=== PATIENT | male | born 1955 | race Caucasian/White ===

== ENCOUNTER 2021-09-19 07:43 | Inpatient (IN) ==
[2021-09-19] MEDS ORDERED: Ondansetron 4 mg VIAL 2 MG/ML 2 ml VIAL IV ONE (08:18)
[2021-09-19] MEDS ORDERED: Lactated Ringers 1000 ml BAG 1,000 ML IV ONE ×3 (08:18→13:13)
[2021-09-19] MEDS ORDERED: Morphine 4 MG/ML VIAL (1 ml) IV ONE (08:18)
[2021-09-19 09:03] LABS: ABS Lymphocytes 0.9 10^3/ul (1.0-4.8); ABS Monocytes 0.6 10^3/ul (0-0.8); ABS Neutrophils 10.8 10^3/ul (1.5-7.7); Eosinophil % 0.1 %; Hematocrit 51 % (42-52); Hemoglobin 17.1 g/dL (14.0-18.0); Lymphocyte % 7.4 %; Mean Corpuscular HGB Conc 34 g/dL (31-36); Mean Corpuscular Hemoglobin 29 pg (27-31); Mean Corpuscular Volume 87 fL (80-94); Mean Platelet Volume 8.7 fL (7.4-10.4); Platelet Count 165 10^3/uL (150-450); Red Blood Count 5.84 10^6 /uL (4.18-5.48); Red Cell Distribution Width 15 % (10-15); White Blood Count 12.4 10^3/uL (3.5-10.8)
[2021-09-19 09:08] LABS: Urine Appearance Clear; Urine Bilirubin Negative (Negative); Urine Blood 1+ (Negative); Urine Color Straw; Urine Glucose 3+(>=500 mg/dL) (Negative); Urine Ketones 1+ (Negative); Urine Nitrite Negative (Negative); Urine Protein 1+(30 mg/dL) (Negative); Urine Specific Gravity 1.033 (1.002-1.030); Urine Urobilinogen Negative (Negative)
[2021-09-19 09:21] LABS: Urine Bacteria Absent (Absent); Urine Red Blood Cell Trace(0-2/hpf) (Absent); Urine Squamous Epithelial Cell Present (Absent); Urine White Blood Cell Trace(0-5/hpf) (Absent); Urine Yeast Present (Absent)
[2021-09-19 09:37] LABS: Albumin 4.6 g/dL (3.2-5.2); Albumin/Globulin Ratio 1.5 (1-3); C Reactive Protein 6.13 mg/L (<8.01); Calcium 9.9 mg/dL (8.6-10.3); Globulin 3.1 g/dL (2-4); Potassium 4.8 mmol/L (3.5-5.0); Total Bilirubin 0.6 mg/dL (0.2-1.0); Total Protein 7.7 g/dL (6.4-8.9); eGFR CKD-EPI 99.7 (>60)
[2021-09-19] MEDS ORDERED: Iodixanol (CONTRAST) 320 MG/ML 100 ML SDV IV ONE (09:48)
[2021-09-19] MEDS ORDERED: cefTAZidime (*) 2 GM in NS 0.9% 100 ml BAG 100 ML IVPB ONE (11:35)
[2021-09-19] MEDS ORDERED: metroNIDAZOLE IV 500 MG/100ML 500 MG/100 ML BAG IVPB ONE (11:36)
[2021-09-19] MEDS ORDERED: NS 0.9% 100 ml BAG 100 ML ONE (11:58)
[2021-09-19] MEDS ORDERED: cefTRIAXone 2 GM ADDV.VIAL 2 GM in NS 0.9% 100 ml BAG 100 ML IVPB ONE (12:05)
[2021-09-19] MEDS ORDERED: Ondansetron 4 mg VIAL 2 MG/ML 2 ml VIAL ONE (12:46)
[2021-09-19] MEDS ORDERED: fentaNYL 100 mcg/2 ml 50 MCG/ML VIAL ONE ×2 (12:46→15:32)
[2021-09-19] MEDS ORDERED: Lidocaine 2% PF 5 ML VIAL ONE (12:46)
[2021-09-19] MEDS ORDERED: Midazolam 2 mg/2 ml VIAL 1 mg/ml 2 ml VIAL (2 mg) ONE (12:46)
[2021-09-19] MEDS ORDERED: Dexamethasone IV 4 MG/ML VIAL 1 ml VIAL ONE (12:46)
[2021-09-19] MEDS ORDERED: Propofol 10 MG/ML 20 ML BTL ONE (12:46)
[2021-09-19] MEDS ORDERED: Rocuronium 50 mg VIAL 10 mg/ml 5 ml VIAL (50 mg) ONE ×2 (12:46→15:09)
[2021-09-19] MEDS ORDERED: Bupivacaine 0.25% EPI 200,000 30 ML SDV ONE (13:02)
[2021-09-19] MEDS ORDERED: Metoprolol Tartrate 5 mg VIAL 5 ml VIAL (1 mg/ml) ONE ×2 (13:28)
[2021-09-19 14:04] LABS: High Sensitivity Troponin 1 Hr 5 pg/mL (<20)
[2021-09-19] MEDS ORDERED: Clindamycin 900 MG/D5W BAG 900 MG/50 ML BAG IVPB ONE (14:10)
[2021-09-19] MEDS ORDERED: Phenylephrine 40 mcg/mL 10mL (400mcg) SYRINGE ONE (14:37)
[2021-09-19] MEDS ORDERED: Phenylephrine IV 10 MG/ML 1 ml VIAL ONE (14:43)
[2021-09-19] MEDS ORDERED: Gentamicin ADULT 365 MG in NS 0.9% 100 ml BAG 100 ML IVPB ONE (15:00)
[2021-09-19] MEDS ORDERED: Acetaminophen IV 1 GM/100ML 100 ML IV ONE (15:12)
[2021-09-19] MEDS ORDERED: Sugammadex 500 MG/5 ML 5 ml VIAL IV PUSH ONE (15:20)
[2021-09-19] MEDS ORDERED: Ondansetron 4 mg VIAL 2 MG/ML 2 ml VIAL IV PRN (15:59)
[2021-09-19] MEDS ORDERED: oxyCODONE/Acetamin 5/325 mg TAB PO PRN ×2 (15:59→16:07)
[2021-09-19] MEDS ORDERED: Lactated Ringers 1000 ml BAG 1,000 ML IV SCH (16:00)
[2021-09-19] MEDS ORDERED: HYDROmorphone 1 MG/1 ML SYRINGE IV PRN (16:05)
[2021-09-19] MEDS ORDERED: Naloxone 0.4 mg VIAL 0.4 mg/ml 1 ml VIAL IV PRN (16:05)
[2021-09-19] MEDS ORDERED: fentaNYL 100 mcg/2 ml 50 MCG/ML VIAL IV PRN (16:05)
[2021-09-19] MEDS: Ciprofloxacin 400mg IVPREMIX 400 MG/200 ML BAG IVPB SCH (19:17)
[2021-09-19] MEDS: metroNIDAZOLE IV 500 MG/100ML 500 MG/100 ML BAG IVPB SCH (19:17)
[2021-09-19] MEDS ORDERED: CMC:SitaGLIPtin 25mg TAB (NF) 25 MG TAB PO SCH (21:00)
[2021-09-19] MEDS ORDERED: Sitaglip/Metform 50/1000(NR) TAB PO SCH (21:00)
[2021-09-19] MEDS: Heparin 5000 UNITS/ML 1 mL VIAL SUBCUT SCH (21:42)
[2021-09-19] MEDS: CMCS: SitaGLIPtin 100 mg TAB (NF) PO SCH (22:17)
[2021-09-20] MEDS: metroNIDAZOLE IV 500 MG/100ML 500 MG/100 ML BAG IVPB SCH ×2 (04:38→10:07)
[2021-09-20] MEDS: Ciprofloxacin 400mg IVPREMIX 400 MG/200 ML BAG IVPB SCH (05:47)
[2021-09-20] MEDS: Heparin 5000 UNITS/ML 1 mL VIAL SUBCUT SCH (05:51)
[2021-09-20 06:08] LABS: ABS Lymphocytes 0.9 10^3/ul (1.0-4.8); ABS Monocytes 0.7 10^3/ul (0-0.8); Hematocrit 41 % (42-52); Mean Corpuscular HGB Conc 34 g/dL (31-36); Mean Corpuscular Hemoglobin 30 pg (27-31); Mean Corpuscular Volume 87 fL (80-94); Mean Platelet Volume 8.4 fL (7.4-10.4); Platelet Count 129 10^3/uL (150-450); Red Blood Count 4.68 10^6 /uL (4.18-5.48); Red Cell Distribution Width 15 % (10-15); White Blood Count 9.6 10^3/uL (3.5-10.8)
[2021-09-20 06:54] LABS: Calcium 8.7 mg/dL (8.6-10.3); Potassium 4.5 mmol/L (3.5-5.0); eGFR CKD-EPI 99.4 (>60)
[2021-09-20] MEDS ORDERED: DAPAGLIFLOZIN 10 MG TAB (NF) PO SCH (09:00)
[2021-09-20] MEDS: CMCS: SitaGLIPtin 100 mg TAB (NF) PO SCH (10:06)
[2021-09-20] MEDS ORDERED: Ciprofloxacin 400mg IVPREMIX 400 MG/200 ML BAG IVPB SCH (11:00)
[2021-09-20 11:07] VITALS: BP 136/78
== END 2021-09-20 14:00 | disposition home or self-care (01) | DRG 339 ==
LOC: ED 07:43 → OR 13:50 → ED 14:06 → SSU 17:54
PROVIDERS: ADMIT Surgery; ATTEND Surgery